=== PATIENT | male | born 1985 | race Caucasian/White ===

== ENCOUNTER 2019-05-18 19:49 | Emergency (ER) | payer BC ==
[2019-05-18] MEDS: DEXAMETHASONE 10 MG/ML 1 ML INJ IM (21:32)
[2019-05-18] MEDS ORDERED: ACETAMINOPHEN 160 MG/5ML CUP PO (21:33)
[2019-05-18] MEDS: ALBUTEROL 0.083% (NEB) 2.5 MG/3 ML AMP NEB (21:38)
[2019-05-18] MEDS: IPRATROPIUM (NEB) 0.5 MG/2.5 ML AMP NEB (21:39)
== END 2019-05-19 00:17 | disposition home or self-care (01) ==
LOC: FTE 05-19 00:17
DX: R10.30 Lower abdominal pain, unspecified (principal); R05 Cough; Z87.891 Personal history of nicotine dependence
CPT/HCPCS: 71046; 94664; 96372; 99284-25